=== PATIENT | female | born 1970 | race Hispanic/Latino ===

== ENCOUNTER 2019-02-13 18:43 | Emergency (ER) | payer SELFPAY ==
[2019-02-13 19:32] LABS: BASOPHILS % (AUTO) 0.2 % (0.0-5.0); EOSINOPHILS % (AUTO) 2.2 % (0.0-8.0); HEMATOCRIT 42.7 % (36-48); LYMPHOCYTES % (AUTO) 7.9 % (21.0-51.0); MEAN CORPUSCULAR HEMOGLOBIN 31.9 pg (27.0-33.0); MEAN CORPUSCULAR HGB CONC 35.6 g/dL (32.0-36.0); MEAN CORPUSCULAR VOLUME 89.6 fL (79-99); MONOCYTES % (AUTO) 5.1 % (3.0-13.0); NEUTROPHILS % (AUTO) 84.6 % (40.0-77.0); PLATELET COUNT (AUTO) 294 K/uL (130-400); RED BLOOD CELL COUNT(AUTO) 4.77 MIL/uL (4.00-5.50); RED CELL DISTRIBUTION WIDTH 11.7 % (11.0-15.5); WHITE BLOOD COUNT (AUTO) 10.5 K/uL (4.8-10.8)
[2019-02-13 19:46] LABS: CREATININE 0.7 mg/dL (0.5-1.5); POTASSIUM 3.7 mmol/L (3.5-5.1)
[2019-02-13 19:50] LABS: ALBUMIN 3.4 g/dL (3.5-5.0); BILIRUBIN,TOTAL 0.6 mg/dL (0.2-1.0); TOTAL PROTEIN, SERUM 7.8 g/dL (6.0-8.3)
[2019-02-13] MEDS ORDERED: KETOROLAC TROMETHAMINE 30MG/ML ONE (20:05)
[2019-02-13] MEDS ORDERED: ONDANSETRON HCL 4 MG/2 ML VIAL ONE (20:06)
[2019-02-13] MEDS ORDERED: LIDOCAINE HCL 2% VISCOUS 15 ML UDCUP ONE (20:35)
[2019-02-13] MEDS ORDERED: MAG HYDROX/AL HYDROX/SIMETH ES 30 ML SUSP UDCUP ONE (20:35)
[2019-02-13] MEDS ORDERED: DICYCLOMINE HCL 10 MG/ML 2ML AMP IM ONE (20:35)
[2019-02-13] MEDS ORDERED: FAMOTIDINE/PF 20 MG/2 ML VIAL IV ONE (20:36)
[2019-02-13 21:05] LABS: APPEARANCE,URINE Clear (CLEAR); BILIRUBIN,URINE Negative (NEGATIVE); COLOR,URINE Dark Yellow (YELLOW); GLUCOSE, URINE (UA) 250 mg/dL (NEGATIVE); KETONES,URINE 15 mg/dL (NEGATIVE); LEUKOCYTE ESTERASE ,URINE Negative (NEGATIVE); NITRATE,URINE Negative (NEGATIVE); OCCULT BLOOD,URINE Nonhemolyzed Trace (NEGATIVE); PROTEIN,URINE Trace mg/dL (NEGATIVE)
[2019-02-13 21:58] LABS: BACTERIA,URINE Rare /HPF (None Seen); MUCUS,URINE Few LPF (None Seen); SQUAMOUS EPITHELIAL CELL,UR 0-2 /HPF (0-2); WBC,URINE None Seen /HPF (0-1)
== END 2019-02-13 22:36 | disposition home or self-care (01) ==
LOC: DTH 18:43
DX: R10.13 Epigastric pain (principal); R10.12 Left upper quadrant pain; R10.32 Left lower quadrant pain; R11.2 Nausea with vomiting, unspecified; E11.9 Type 2 diabetes mellitus without complications; Z90.49 Acquired absence of other specified parts of digestive tract
CPT/HCPCS: 36415; 74176; 80053; 81001; 82150; 83690; 84484; 85025; 93005; 96361; 96365; 96372; 96375; 99284; J0500; J1885; J2405; J3490

== ENCOUNTER 2019-04-13 12:48 | Emergency (ER) | payer OTHER, SELFPAY ==
[2019-04-13] MEDS ORDERED: KETOROLAC TROMETHAMINE 60 MG/2 ML VIAL ONE (13:46)
[2019-04-13] MEDS ORDERED: METHYLPREDNISOLONE SOD SUCC 125MG/2ML VIAL ONE (13:46)
[2019-04-13] MEDS ORDERED: ORPHENADRINE CITRATE 30 MG/ML ML ONE (16:00)
== END 2019-04-13 16:09 | disposition home or self-care (01) ==
LOC: EDH 12:48
DX: S76.312A Strain of muscle, fascia and tendon of the posterior muscle group at thigh level, left thigh, initial encounter (principal); E11.9 Type 2 diabetes mellitus without complications; X58.XXXA Exposure to other specified factors, initial encounter; Y93.89 Activity, other specified; Y92.098 Other place in other non-institutional residence as the place of occurrence of the external cause; Y99.8 Other external cause status
CPT/HCPCS: 73502; 96372 ×3; 99284; A4218; J1885; J2360; J2930

== ENCOUNTER 2020-04-11 22:52 | Emergency (ER) | payer OTHER, SELFPAY ==
[2020-04-11] MEDS ORDERED: CLINDAMYCIN HCL 150 MG CAP ONE (23:37)
[2020-04-11] MEDS ORDERED: TRAMADOL HCL 50 MG TABLET ONE (23:37)
== END 2020-04-12 00:34 | disposition home or self-care (01) ==
LOC: EDH 22:52
DX: L03.012 Cellulitis of left finger (principal); E11.65 Type 2 diabetes mellitus with hyperglycemia; R03.0 Elevated blood-pressure reading, without diagnosis of hypertension
CPT/HCPCS: 73140; 82948

== ENCOUNTER 2024-05-31 02:31 | Emergency (ER) | payer OTHER, SELFPAY ==
[~2024-05-31] VITALS: Ht 152.4 cm; Wt 71.2 kg
[2024-05-31 02:52] LABS: APPEARANCE,URINE CLEAR (CLEAR); BILIRUBIN,URINE NEGATIVE (NEGATIVE); COLOR,URINE YELLOW (YELLOW); GLUCOSE, URINE (UA) >=1000 mg/dL (NEGATIVE); KETONES,URINE 5 mg/dL (NEGATIVE); LEUKOCYTE ESTERASE ,URINE NEGATIVE Leu/uL (NEGATIVE); NITRATE,URINE NEGATIVE (NEGATIVE); OCCULT BLOOD,URINE NEGATIVE (NEGATIVE); PROTEIN,URINE 20 mg/dL (NEGATIVE); UROBILINOGEN,URINE 3 mg/dL (0.2-1.0)
[2024-05-31 02:56] LABS: ADD UA MICROSCOPIC YES
[2024-05-31 02:57] LABS: BACTERIA,URINE FEW /HPF (None Seen); MUCUS,URINE FEW LPF (None Seen); RBC,URINE 0-1 /HPF (0-1); SQUAMOUS EPITHELIAL CELL,UR RARE /HPF (0-2)
[2024-05-31 02:57] LABS: BASOPHILS # (AUTO) 0.05 K/uL (0.00-0.20); BASOPHILS % (AUTO) 0.6 % (0.0-5.0); EOSINOPHILS # (AUTO) 0.53 K/uL (0.00-0.70); EOSINOPHILS % (AUTO) 5.9 % (0.0-8.0); IMMATURE GRANULOCYTE ABSOLUTE 0.02 K/uL (0-1); LYMPHOCYTES # (AUTO) 2.8 K/uL (1.0-4.8); LYMPHOCYTES % (AUTO) 30.6 % (21.0-51.0); MEAN CORPUSCULAR HEMOGLOBIN 28.6 pg (27.0-33.0); MEAN CORPUSCULAR HGB CONC 32.6 g/dL (32.0-36.0); MEAN CORPUSCULAR VOLUME 87.6 fL (79-99); MONOCYTES # (AUTO) 0.6 K/uL (0.1-1.0); MONOCYTES % (AUTO) 6.6 % (3.0-13.0); NEUTROPHILS # (AUTO) 5.1 K/uL (1.8-7.7); NEUTROPHILS % (AUTO) 56.1 % (40.0-77.0); PLATELET COUNT (AUTO) 291 K/uL (130-400); RED BLOOD CELL COUNT(AUTO) 4.34 MIL/uL (4.00-5.50); RED CELL DISTRIBUTION WIDTH 12.7 % (11.0-15.5); WHITE BLOOD COUNT (AUTO) 9.1 K/uL (4.8-10.8)
[2024-05-31] MEDS: PANTOPRAZOLE 40 MG/VIAL IVP ONE (03:00)
[2024-05-31] MEDS: 0.9%NACL 1000ML 1,000 ML IV ONE (03:00)
[2024-05-31 03:07] LABS: CREATININE 0.6 mg/dL (0.5-1.0); POTASSIUM 3.8 mmol/L (3.5-5.1)
[2024-05-31 03:11] LABS: ALBUMIN 3.1 g/dL (3.5-5.0); BILIRUBIN,TOTAL 0.4 mg/dL (0.2-1.0); TOTAL PROTEIN, SERUM 7.4 g/dL (6.0-8.3)
[2024-05-31] MEDS: LIDOCAINE HCL 2% VISCOUS 15 ML UDCUP PO ONE (03:57)
[2024-05-31] MEDS: MAG/ALUM/SIMETH 30 ML UDCUP PO ONE (03:58)
[2024-05-31] MEDS ORDERED: PANT40TA55 PO (04:37)
[2024-05-31 04:46] VITALS: BP 142/67; PULSE 70; RESP 16; O2SAT 98
== END 2024-05-31 04:48 | disposition home or self-care (01) ==
LOC: EDH 02:31
DX: K21.9 Gastro-esophageal reflux disease without esophagitis (principal); E11.9 Type 2 diabetes mellitus without complications; Z90.49 Acquired absence of other specified parts of digestive tract; Z98.890 Other specified postprocedural states
CPT/HCPCS: 99284; 84484; 80053; 83690; 85025; 81001; 36415; 96374; 93005; J7030; J2470

== ENCOUNTER 2025-08-08 21:05 | Emergency (ER) | payer BC ==
[~2025-08-08] VITALS: Ht 144.8 cm; Wt 67.1 kg
[~2025-08-08 21:05] MED LIST: PANT40TA55 PO
--- NOTE | 2025-08-08 21:25 | NUR ---
PATIENT TAKEN TO CT BY ANTENNA ENGINEER.
--- NOTE | 2025-08-08 21:58 | NUR ---
PATIENT RETURNED FROM CT.
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
[2025-08-08 23:09] VITALS: BP 161/95; PULSE 81; RESP 16; TEMP 98.1; O2SAT 97
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
== END 2025-08-08 23:18 | disposition home or self-care (01) ==
LOC: EDH 21:05
DX: S16.1XXA Strain of muscle, fascia and tendon at neck level, initial encounter (principal); S39.012A Strain of muscle, fascia and tendon of lower back, initial encounter; E11.9 Type 2 diabetes mellitus without complications; Z79.899 Other long term (current) drug therapy; V89.2XXA Person injured in unspecified motor-vehicle accident, traffic, initial encounter; Y93.89 Activity, other specified; Y92.89 Other specified places as the place of occurrence of the external cause; Y99.8 Other external cause status
CPT/HCPCS: 99285; 70450; 72100; 72125; 96372; J1885